=== PATIENT | male | born 1950 | race Caucasian/White ===

== ENCOUNTER → 2023-03-21 | Outpatient (CLI) | payer MEDICARE ==
--- NOTE | 2023-03-22 10:02 | MR ---
EXAMINATION TYPE: MR lumbar spine wo con DATE OF EXAM: 03/21/2023 7:16 AM COMPARISON: None. CLINICAL INDICATION: Male, 72 years old with history of M43.10; Lower back pain, BLE radiculopathy. TECHNIQUE: Multi planar, multi sequence imaging was performed utilizing: T1-weighted, T2-weighted, a nd turbo inversion recovery imaging of the lumbar spine. IV Contrast: None. FINDINGS: Alignment: The lumbar vertebral bodies have preserved heights and alignment. Cord: The conus medullaris and the distal spinal cord appear unremarkable with regards to their signa l intensity and morphology. Bones/Discs: Diffuse low signal to the osseous structures. No abnormal bony edema on inversion recove ry sequences. Multilevel disc degenerative is noted and most pronounced at the L5-S1. Intervertebral disc signal is maintained. T12-L1: No evidence of significant spinal canal stenosis or neural foraminal stenosis. L1-L2: No evidence of significant spinal canal stenosis or neural foraminal stenosis. L2-L3: No evidence of significant spinal canal stenosis. Facet joint arthropathy mild bilateral neura l foraminal stenosis. L3-L4: No evidence of significant spinal canal stenosis. Facet joint arthropathy mild bilateral neura l foraminal stenosis. L4-L5: No evidence of significant spinal canal stenosis. Facet joint arthropathy mild to moderate miguel angel ateral neural foraminal stenosis. L5-S1: The disc is rounded posterior morphology without significant spinal canal stenosis. Facet join t arthropathy with mild to moderate neural foraminal stenosis. Trace bilateral facet joint effusions. No significant spinal canal or neural foraminal stenosis in the remainder of the visualized levels. Other findings: High T2 signal right renal cyst. IMPRESSION: 1. No definitive evidence of disc herniation or significant spinal canal stenosis. 2. Mild disc degeneration with associated osteoarthritic changes. There is mild reactive edema aroun d the facet joints at L5-S1. 3. Diffuse red marrow conversion can be seen in the setting of tobacco abuse, anemia, or myeloprolife rative disorder.
== END | disposition home or self-care (01) ==
LOC: RADMRIMAIN 06:28
PROVIDERS: ATTEND Family Medicine
DX: M51.16 Intervertebral disc disorders with radiculopathy, lumbar region (principal); M43.16 Spondylolisthesis, lumbar region; R60.0 Localized edema
CPT/HCPCS: 72148